=== PATIENT | male | born 1995 | race Caucasian/White ===

== ENCOUNTER 2021-01-04 19:23 | Emergency (ER) | payer OTHER ==
[~2021-01-04 19:23] MED LIST: VISTARIL50 MG PO
== END 2021-01-04 21:00 | disposition home or self-care (01) ==
LOC: ER1 19:23
DX: N50.811 Right testicular pain (principal); N50.812 Left testicular pain; G89.29 Other chronic pain
CPT/HCPCS: 81001; 99284